=== PATIENT | male | born 1995 | race Caucasian/White ===

== ENCOUNTER 2022-05-05 13:57 | Outpatient (CLI) | payer SELFPAY ==
--- NOTE | ~2022-05-05 | XR_ITS ---
EXAMINATION: XR hand RT min 3V INDICATION: Right hand pain and swelling TECHNIQUE: Three views of the right hand are obtained. COMPARISON: None available FINDINGS: Bone alignment is normal. No fracture, dislocation, or subluxation. The joint spaces are no rmal. There is mild soft tissue swelling. IMPRESSION: 1. No acute osseous abnormality. Reviewed, dictated and finalized at location A. ACT LENS BLOCKER
== END 2022-05-05 13:58 | disposition home or self-care (01) ==
LOC: CHSIMG 14:00
PROVIDERS: PCP Family Medicine; Visit Provider Family Medicine
DX: M79.641 Pain in right hand (principal)
CPT/HCPCS: 73130

== ENCOUNTER 2022-07-15 18:41 | Emergency (ER) | payer OTHER, SELFPAY ==
--- NOTE | ~2022-07-15 | XR_ITS ---
XR ankle LT 2V, XR foot LT 2V 07/15/2022 20:28 (accession [id number]), 07/15/2022 20:29 (accession [id number]) Indication: Left leg pain after trauma Procedure: 2 views left ankle and 2 views left foot Comparison: No prior studies for comparison. Findings: There is a displaced oblique extra-articular fracture distal fibular metadiaphysis with rene roximately one cortical bone width dorsal displacement. Ankle mortise intact. Talar dome is unremarka ble. Lisfranc joint intact. Impression: 1: Oblique extra-articular fracture distal fibular metadiaphysis with dorsal displacement. Reviewed, dictated and finalized at location A. ITECTURE FACULTY MEMBER Impression: 1: Oblique extra-articular fracture distal fibular metadiaphysis with dorsal di splacement. Impression: 1: Oblique extra-articular fracture distal fibular metadiaphysis with dorsal di splacement.
--- NOTE | ~2022-07-15 | XR_ITS ---
XR ankle LT 2V 07/15/2022 21:45 Indication: Left fibular fracture seen on prior x-ray Procedure: 2 views left ankle Comparison: 07/15/2022 Findings: Mildly displaced oblique distal fibular fracture reidentified. There is widening of the med ial ankle mortise, suspicious for injury to the deltoid ligament. Talar dome is unremarkable. Impression: 1: Stable alignment of mildly displaced oblique distal fibular metadiaphyseal fracture. 2: Widening of the medial ankle mortise, suspicious for injury to the deltoid ligament. Reviewed, dictated and finalized at location A. T CARD CLERK Impression: 1: Stable alignment of mildly displaced oblique distal fibular metadiaphyseal f racture. 2: Widening of the medial ankle mortise, suspicious for injury to the deltoid ligament.
[2022-07-15 18:50] VITALS: BP 129/74; PULSE 94; RESP 18; TEMP 36.2; O2SAT 98
[2022-07-15 21:26] VITALS: BP 141/83; PULSE 99; RESP 17; TEMP 36.9; O2SAT 97
[2022-07-15] MEDS: HYDROcodone/acetaminophen (*CRX) 10-325 MG TABLET 1 TAB PO (21:51)
--- NOTE | 2022-07-15 22:13 | ED.GENADULT ---
HPI - General Adult General Chief complaint: Extremity Injury, Lower <MEGAN Manrique Last Filed: 07/16/22 01:57> Stated complaint: ankle injury <MEGAN Manrique Last Filed: 07/16/22 01:57> Time Seen by Provider: 07/15/22 20:50 <Neo Corrigan PA-C - Last Filed: 07/16/22 01:57> Mode of arrival: wheelchair <MEGAN Manrique Last Filed: 07/16/22 01:57> Limitations: no limitations <MEGAN Manrique Last Filed: 07/16/22 01:57> History of Present Illness HPI narrative: This is a 19-year-old male who presents with chief complaint of right ankle injury. He was jumping on a trampoline park today and went straight through the foam pit down to the floor, the first. [place] a pop and immediate pain in his right ankle.. Unable to bear weight. States the pain is lateral in location, denies any medial pain.. Denies foot pain or right knee pain. Denies numbness. <MEGAN Manrique Last Filed: 07/16/22 01:57> Related Data Allergies/adverse reactions: Allergies Allergy/AdvReac Type Severity Reaction Status Date / Time Penicillins Allergy Unknown Unknown Verified 07/15/22 21:29 <MEGAN Manrique Last Filed: 07/16/22 01:57> Review of Systems Review of Systems: CONSTITUTIONAL: Denies fever, chills, or sweats. SKIN: Denies rash or itching. MUSCULOSKELETAL: Endorses right ankle pain and swelling. Denies any further pain. Denies back pain, joint pain, or myalgia. NEUROLOGIC: Denies headache, numbness, dizziness, or weakness. PSYCHIATRIC: Denies anxiety or depression. <MEGAN Manrique Last Filed: 07/16/22 01:57> [facility] Past Medical History Medical History: Medical History (Updated 07/16/22 @ 00:00 by Background Daemon) Fibula fracture No active medical problems <MEGAN Manrique Last Filed: 07/16/22 01:57> Surgical History Surgical History: Surgical History No history of previous surgery <Neo Corrigan PA-C - Last Filed: 07/16/22 01:57> Family History Family History: Family History Other Family history of cardiovascular disease Family history of chronic obstructive pulmonary disease <Neo Corrigan PA-C - Last Filed: 07/16/22 01:57> Social History Social History: Social History Smoking status: Never smoker Lack of Transportation: No Lack of Food: Never True Current Housing: I Have Housing Concerned About Future Housing: No Difficulty Paying Gas/Electric Bills: No Difficulty Paying for Meds: No Currently Unemployed: No Education: High School Diploma/GED Difficulty w/ Childcare or Family Care: No <Neo Corrigan PA-C - Last Filed: 07/16/22 01:57> Exam Narrative: GENERAL: Well-appearing, well-nourished, and in no acute distress. HEAD: Normocephalic, atraumatic. EXTREMITIES: Right ankle: No deformity present. Moderate swelling about the entire ankle joint. Point tenderness at the lateral malleolus and just superior on the distal fibula. There is no tenderness to the medial malleolus, midfoot or forefoot. Crews test negative. Syndesmosis intact. Neurovascularly intact distally. Active range of motion is severely reduced due to pain. Left ankle: Normal exam Right knee: Normal exam SKIN: Warm, dry, no rash. No overlying skin changes. Soft compartments. NEURO: Alert and oriented x3. No focal deficits. 5 out of 5 sensation bilaterally. PSYCH: Normal mood and affect. <Neo Corrigan PA-C - Last Filed: 07/16/22 01:57> Course Course Emergency Course: 2155: Spoke with Dr. Mack (orthopedics), who recommends no reduction. Posterior splint and nonweightbearing. Follow-up in clinic next week. <Neo Corrigan PA-C - Last Filed: 07/16/22 01:57> MOVABLE BULKHEAD INSTALLER/PA Physician Supervision For this encounter, I have reviewed the
--- NOTE | 2022-07-15 22:51 | PC.NURSE ---
Patient states he has crutches at home.
== END 2022-07-15 23:06 | disposition home or self-care (01) ==
PROVIDERS: Emergency Provider Physician Assistant; PCP Family Medicine
DX: S89.392A Other physeal fracture of lower end of left fibula, initial encounter for closed fracture (principal); X50.9XXA Other and unspecified overexertion or strenuous movements or postures, initial encounter
CPT/HCPCS: 29505; 73600; 73620; 99284; A9270

== ENCOUNTER 2022-07-25 01:03 | Day surgery (SDC) | payer SELFPAY ==
[2022-07-19 08:44] VITALS: BMI 34.4
--- NOTE | 2022-07-19 08:47 | PC.NURSE ---
Report to the Outpatient Waiting Room, entrance under the green pavilion located off [facility], at time 1300 on date 07/25/22. Planned Procedure Time: 1500. Time changes happen often and if your time is changed the preop area will call you the afternoon before. - You and your visitor will be asked to self-screen and do not enter if you have any COVID symptoms. - Only one visitor is requested with a max of two and NO children visitors are allowed at this time. - The patient visitor may be requested to leave or wait in car when not with patient due to distancing restrictions. - A mask is optional within the hospital at this time. Patients may have clear liquids (water, carbonated beverages, clear teas, apple juice) until 3 hours prior to surgery with a maximum of 20 ounces. - No food from midnight until time of surgery Take the following medications with a SIP of water the morning of surgery: PAIN PILL IF NEEDED DO NOT STOP ANY OF YOUR OTHER PRESCRIPTION MEDICATIONS PRIOR TO SURGERY EXCEPT THE FOLLOWING Medications to discontinue per physician: N/A Date to take last dose: N/A Please no make-up, nail dutch, hairspray, perfume, deodorant, or body powder the day of surgery. No jewelry (including any body piercings) or valuables the day of surgery, leave them at home. Please take a shower or bath the night before, or the morning of, surgery with an antibacterial soap. Wear comfortable, loose fitting clothing. - Jewelry must be removed prior to entering the operating room. Rings and piercings that are not removed may be cut off. - The hospital will not accept responsibility for valuables. - Please leave all valuables, including medications, at home the day of surgery. If you are going home after surgery, a licensed furniture mover driver must drive you home. - NO public transportation without another adult if you receive anesthesia. - We recommend that an adult stay with you for 24 hours following discharge. - We also recommend that you do not drive, make important decision, drink alcoholic beverages, or take any drugs that were not prescribed by your health care provider for at least 24 hours after your discharge time. Follow any additional instructions given to you from your surgeon. If you or anyone in your household have experienced Covid symptoms in the past week, please notify your surgeon or the nurse liaison at the phone number below for possible testing. Telephone instructions given to PT - SLAVA HAWTHORNE and asked if any additional questions and then verbalized understanding. Patient advised to call surgeon office or pre surgery nurse liaison [phone] if any additional questions.
[2022-07-25] VITALS (8 sets, daily range): BP systolic 132–149; BP diastolic 68–91; PULSE 73–107; RESP 12–16; TEMP 36.3–36.6; O2SAT 94–99
--- NOTE | ~2022-07-25 | XR_ITS ---
EXAMINATION: XR surgery orthopedic DATE: 07/25/2022 16:35 PROPERTY MANAGEMENT ACCOUNTANT INDICATION: ORIF LT ANKLE . TECHNIQUE: 4 fluoroscopic images of the left ankle were obtained during ORIF left ankle performed by the surgeon. I was not present in the operating room. Fluoroscopy exposure time was 46.5 seconds. Air Kerma 1.6513 mGy. DAP 0.0327 mGym2. COMPARISON: X-ray left ankle 07/15/2022 FINDINGS: Hardware fixation of the distal left fibular fracture. Syndesmotic repair. IMPRESSION: Fluoroscopic documentation of ORIF left ankle. Please refer to the operative note for complete proced ural details . Reviewed, dictated and finalized at location K. ERTY MANAGEMENT ACCOUNTANT IMPRESSION: Fluoroscopic documentation of ORIF left ankle. Please refer to the operative no te for complete procedural details .
[2022-07-25] MEDS: LACTATED RINGERS 1,000 ML 30 ML IV CONT ×2 (13:00→18:03)
[2022-07-25] MEDS: KETOROLAC 15 MG/ML VIAL (*BKC) IV PUSH (13:05)
[2022-07-25] MEDS: ACETAMINOPHEN 500 MG TABLET 1000 MG PO (13:05)
--- NOTE | 2022-07-25 16:04 | WPDANESEPPF ---
Anes - Initial Pre Proc Eval Procedure: Operation Date: 07/25/22 15:00 Proposed Procedures p Open Reduction Internal Fixation Left Lateral Malleolar Fracture, Possible Syndesmosis - Negrito Mack MD Date/Time: 07/25/22 16:04 Surgeon: Negrito Mack MD Pre Op Diagnosis: Left lateral malleolar fx,delt lig sprain Patient Data Age: 27 Gender: M Height: 1.78 m Weight: 107.1 kg Last Vital Signs Temp 36.6 C 07/25/22 13:35 Pulse 107 H 07/25/22 13:35 Resp 16 07/25/22 13:35 BP 132/70 07/25/22 13:35 Pulse Ox 97 07/25/22 13:35 O2 Del Method Room Air 07/25/22 13:35 Allergies Allergy/AdvReac Type Severity Reaction Status Date / Time Penicillins Allergy Unknown Anaphylaxis Verified 07/25/22 13:31 Home Medications Medication Instructions Recorded Confirmed Type lisinopril 20 mg tablet See Rx Instructions .Route 02/24/22 07/19/22 Rx .COMPLEX #90 tabs oxycodone-acetaminophen 5 mg-325 1 - 2 tablet PO Q4-6H PRN pain #40 07/18/22 07/19/22 Rx mg tablet (Percocet) tabs oxycodone-acetaminophen 5 mg-325 1 - 2 tablet PO Q4-6H PRN pain #30 07/25/22 Rx mg tablet tabs Patient hx anesthesia problems: none Family hx anesthesia problems: none Results Review: All pre-operative results and documents have been reviewed as part of the pre-operative evaluation. [facility] Past Medical History Medical History Fibula fracture Hypertension No active medical problems Surgical History Surgical History History of appendectomy (~2014) No history of previous surgery Family History Family History Mother Diabetes mellitus Other Family history of cardiovascular disease Family history of chronic obstructive pulmonary disease Social History Social History Smoking status: Never smoker Alcohol intake: never Substance use: never Substance use type: does not use Lack of Transportation: No Lack of Food: Never True Current Housing: I Have Housing Concerned About Future Housing: No Difficulty Paying Gas/Electric Bills: No Difficulty Paying for Meds: No Currently Unemployed: No Education: High School Diploma/GED Difficulty w/ Childcare or Family Care: No Living arrangements: with family Spiritual care concerns: No Anes - Eval Final PreProcedure Day of Procedure 07/25/22 16:04 Patient weight: obese Heart: regular rate and rhythm Lungs: clear to auscultation Airway: Mallampati scale class II Neurological: alert and oriented Last oral intake: >/= 8 hours ASA classification: II Emergent: no Anesthetic plan: proceed Anesthesia type and monitoring: general LMA and standard monitoring Results Review: All pre-operative results and documents have been reviewed as part of the pre-operative evaluation. Informed Consent: The patient's anesthetic plan and its attendant risks and benefits were discussed with the patient/family/POA. Questions were solicited and answers provided to the satisfaction of the patient/family/POA.
--- NOTE | 2022-07-25 16:04 | WPDHPUPDATE1 ---
History and Physical Update Update Date/Time: 07/25/22 16:04 History and Physical has been reviewed, including an updated exam of the patient. There are NO changes in the patient's condition. Risks, benefits, and alternatives have been discussed and questions answered. Patient agrees to proceed with procedure.
[2022-07-25] MEDS: CLINDAMYCIN 900 MG/D5W 50 ML 900 MG/50 ML PIGGYBACK 50 MG IVPB (16:22)
--- NOTE | 2022-07-25 18:20 | W.PM.PROC2 ---
Procedure Note - Detailed Date of Procedure 07/25/22 Pre-op Diagnosis Left lateral malleolar fx,delt lig sprain Post-op Diagnosis Other (1. Displaced distal fibula lateral malleolar fracture, [place] C type 2. Syndesmosis sprain 3. Deltoid ligament sprain ) Procedure Performed Left ankle 1. ORIF distal fibula lateral malleolus 2. ORIF tib fib syndesmosis Surgeon Negrito Mack MD Anesthesia General Findings Excellent bone quality. High oblique fracture. Syndesmosis mildly dynamically unstable. Single suture button fixation applied for additional stability of the syndesmosis after anatomic plating of the lateral fibula. Description of Procedure With a general anesthetic was administered. The limb was prepped and draped in the usual sterile fashion with a well-padded tourniquet high on the thigh. A bump was placed under the hip. The limb was exsanguinated and the tourniquet inflated to 300 millimeters of mercury during the procedure. A longitudinal incision was created at the distal fibula. Careful dissection was carried down to bone. Perineal nerve branches were protected. The fracture was carefully exposed. Callus and debris was irrigated from the wound. The fracture was brought out to length. Reduction was accomplished with the reduction forceps. The fixation plate was contoured. An anterior to posterior lag screw was placed. Fixation was performed with a combination of cortical and cancellous screws. Locking screws were used distally. The syndesmosis was assessed and found to be dynamically mildly unstable. Capping at the medial clear space was increased and it was elected to stabilize the syndesmosis with a suture button through the plate. The tib fib articulation appeared anatomic. Fluoroscopy was used throughout the procedure to confirm anatomic reduction and appropriate placement of the implants. The tourniquet was released. Meticulous hemostasis was obtained. The wound was closed in layers with 2-0 Vicryl suture 3-0 Monocryl suture and ese. A sterile splint with padding was applied. The patient was extubated and brought to the recovery room in stable condition. There were no complications. Implants Accu Med anatomic lateral distal fibula plate. Syndesmosis suture button. Estimated Blood Loss 20 Complications No immediate complications Condition Stable Disposition PACU [facility] Billing Surgery - Charge Forward: Surgery Billing
[2022-07-25] MEDS: oxyCODONE HCL (*CRX) 5 MG TAB IR PO (19:16)
== END 2022-07-25 19:42 | disposition home or self-care (01) ==
PROVIDERS: PCP Family Medicine; Visit Provider Orthopaedic Surgery
PROC: (CPT 27829; principal; 2022-07-25 15:00)
DX: S82.62XA Displaced fracture of lateral malleolus of left fibula, initial encounter for closed fracture (principal); S93.432A Sprain of tibiofibular ligament of left ankle, initial encounter; S93.422A Sprain of deltoid ligament of left ankle, initial encounter; X50.0XXA Overexertion from strenuous movement or load, initial encounter; I10 Essential (primary) hypertension; E66.9 Obesity, unspecified; Z68.33 Body mass index [BMI] 33.0-33.9, adult
CPT/HCPCS: 27829; 27792; 99199; A9270; C1713; J1100; J1885; J2250; J2405; J2704; J3010; J7120